=== PATIENT | male | born 1995 | race Caucasian/White ===

== ENCOUNTER 2021-09-03 23:24 | Emergency (ER) | payer SELFPAY ==
[2021-09-04] MEDS ORDERED: HYDROmorphone 1 MG/ML Syringe IM ONE (00:51)
[2021-09-04] MEDS ORDERED: Acetaminophen/HYDROcodone 325-5 MG Tab PO ONE (02:10)
== END 2021-09-04 03:00 | disposition home or self-care (01) ==
LOC: JP.ED 23:24
DX: S72.444A Nondisplaced fracture of lower epiphysis (separation) of right femur, initial encounter for closed fracture (principal); S80.211A Abrasion, right knee, initial encounter; F17.210 Nicotine dependence, cigarettes, uncomplicated; X50.1XXA Overexertion from prolonged static or awkward postures, initial encounter
CPT/HCPCS: 73700; 96372; 99283; A9270; J1170

== ENCOUNTER 2021-09-06 09:00 | Day surgery (SDC) | payer SELFPAY ==
[~2021-09-06 09:00] MED LIST: Dexamethasone 4 MG/ML SDV ONE; Glycopyrrolate 0.2 MG/ML 5 ML MDV ONE; Neostigmine Methylsulfate 1 MG/ML 5 ML Syringe ONE; Ondansetron 4 MG/2 ML SDV ONE; Propofol 200 MG/20 ML SDV ONE; Rocuronium 50 MG/5 ML Vial ONE; Succinylcholine 200 MG/10 ML MDV ONE; fentaNYL 250 MCG/5 ML SDV ONE
[2021-09-06] MEDS ORDERED: ceFAZolin 2 GM in Premix Bag 1 BAG IV ONE (09:30)
[2021-09-06 09:45] LABS: ESTIMATED GFR 124 mL/min (>60)
[2021-09-06] MEDS ORDERED: Nozin Nasal Sanitizer NASBOTH ONE (09:45)
[2021-09-06] MEDS ORDERED: Lactated Ringers 1,000 ML IV SCH (09:52)
[2021-09-06] MEDS ORDERED: Bupivacaine 0.5% 30 ML SDV ONE (10:11)
[2021-09-06] MEDS ORDERED: Propofol 200 MG/20 ML SDV ONE (11:18)
[2021-09-06] MEDS ORDERED: fentaNYL 250 MCG/5 ML SDV ONE (11:42)
[2021-09-06] MEDS ORDERED: Morphine 2 MG/ML SYRINGE IVPUSH ONE (12:47)
[2021-09-06] MEDS ORDERED: Acetaminophen/oxyCODONE 325-5 MG Tab PO PRN (13:36)
[2021-09-07] MEDS ORDERED: ceFAZolin 2 GM in Sodium Chloride 0.9% 100 ML IV ONE (09:30)
[2021-09-07] MEDS ORDERED: Lactated Ringers 1,000 ML IV SCH (09:30)
== END 2021-09-06 15:45 | disposition home or self-care (01) ==
LOC: JP.SDS 09:00
PROVIDERS: ATTEND Specialist
DX: S83.004A Unspecified dislocation of right patella, initial encounter (principal); M23.41 Loose body in knee, right knee; M22.41 Chondromalacia patellae, right knee; F90.9 Attention-deficit hyperactivity disorder, unspecified type; F17.210 Nicotine dependence, cigarettes, uncomplicated; Z01.812 Encounter for preprocedural laboratory examination; Z20.822 Contact with and (suspected) exposure to COVID-19
CPT/HCPCS: 27380; 29873; 36415; 80053; 85027; 87635; A9270; J0330; J0690; J1100; J2270; J2405; J2704; J2710; J3010; J3490; J7120; U0002